=== PATIENT | female | born 1965 | race Caucasian/White ===

== ENCOUNTER 2016-10-12 03:23 | Emergency (ER) ==
[2016-10-12 03:45] VITALS: BP 135/85; TEMP 101; BMI 28.8
--- NOTE | 2016-10-12 04:38 | CT ---
EXAM: CT of the chest without contrast. HISTORY: Cough. PROCEDURE: Contiguous axial CT images of the chest without contrast with coronal and sagittal refor mats. FINDINGS: The heart, mediastinum and thoracic aorta are normal in appearance. There is minimal infil trate in the posterior right lower lobe consistent with pneumonia. The adrenal glands and visualized portion of the liver are normal in appearance. Impression: Minimal infiltrate in the posterior right lower lobe consistent with pneumonia.
[2016-10-12 04:44] LABS: ABG BASE EXCESS -1 (-2.0-2.0); ABG HCO3 23.5 (22.0-26.0); ABG PCO2 36.6 mmHg (35-45); ABG PH 7.415 (7.35-7.45); ABG TCO2 25 (22.0-28.0)
[2016-10-12 04:45] LABS: BASOPHILS % (AUTO) 0.3 % (0.0-3.0); EOSINOPHILS # (AUTO) 0.2 K/ul (0.0-0.7); EOSINOPHILS % (AUTO) 2.6 % (0.0-7.0); HEMATOCRIT 39.3 % (37.0-47.0); HEMOGLOBIN 12.9 g/dl (12.0-16.0); IMMATURE GRANULOCYTE % (AUTO) 0.6 % (0.0-5.0); LYMPHOCYTES # (AUTO) 1.6 K/uL (0.60-3.4); LYMPHOCYTES % (AUTO) 24.2 (10.0-50.0); MEAN CORPUSCULAR HEMOGLOBIN 29.3 pg (27.0-31.0); MEAN CORPUSCULAR HGB CONC 32.8 (31.8-35.4); MEAN CORPUSCULAR VOLUME 89.1 fl (81.0-99.0); MONOCYTES % (AUTO) 14.8 (0-10); NEUTROPHILS # (AUTO) 3.8 K/ul (2.0-6.9); NEUTROPHILS % (AUTO) 57.5; PLATELET COUNT 224 10^3/uL (140-440); RED BLOOD COUNT 4.41 10^6/ul (4.20-5.40); WHITE BLOOD COUNT 6.56 K/ul (4.6-10.2)
[2016-10-12] MEDS: DUONEB NEB STA (04:45)
[2016-10-12] MEDS: XOPENEX 1.25 MG NEB STA (04:55)
[2016-10-12] MEDS: DECADRON 4 MG/ML SDV IM STA (04:57)
[2016-10-12 05:05] LABS: ALBUMIN 3.6 g/dL (3.4-5.0); ANION GAP 14.8; BILIRUBIN,TOTAL 0.28 mg/dL (0.00-1.20); BUN/CREATININE RATIO 11.11; CALCIUM 9.3 mg/dL (8.2-10.2); CREATININE 0.81 mg/dL (0.60-1.30); POTASSIUM 3.8 mmol/L (3.5-5.10); TOTAL PROTEIN 7.2 g/dL (6.4-8.2)
[2016-10-12] MEDS: LEVAQUIN 750 MG in PREMIX 150 ML D5W 1 BAG IV STA (06:24)
[2016-10-12] MEDS: LEVAQUIN 150 ML IV ONE (06:24)
--- NOTE | 2016-10-12 06:41 | ED.PDOC ---
General ED Provider: Dr. LAURA BAHENA-ER Chief Complaint: Shortness of Air Stated Complaint: im coughing and running a fever Time Seen by Physician: 03:30 Mode of Arrival: Walk-In Information Source: Patient, Family Exam Limitations: No limitations Primary Care Provider: SYDNI GARCÍA Nursing and Triage Documentation Reviewed and Agree: Yes Respiratory Complaint Exam - Respiratory Complaint/Exam Onset/Duration: 24 hrs Symptoms Are: Still present Timing: Constant Initial Severity: Mild Current Severity: Mild Location: Chest Character: Reports: Productive cough Aggravating: Reports: URI Alleviating: Reports: None Associated Signs and Symptoms: Reports: Fever, Chills, URI. Denies: Rapid breathing, Dyspnea, Chest pain, Pleuritic chest pain, Wheezing, Hemoptysis, Dizziness, Calf pain, Calf swelling, Edema, Nasal congestion, Hoarseness, Sinus discomfort, Vomiting, Sore throat, Weight loss, Decreased oral intake, Increased thirst, Increased appetite, Increased urination Related History: Reports: Similar episode History of Healthcare-Acquired Pneumonia: No Related Surgical History: Reports: None Status Asthmaticus Risk Factors: Reports: None Home Oxygen Use: No Recent Stress Test: No Recent Echo/LV Function: No Current Antibiotic Use: No Current Asthma Medication Use: No Respiratory Distress: None Inadequate Respiratory Effort: No Dysphagia Present: No Stridor Present: No JVD Present: No Accessory Muscle Use: No Retractions: Not Present Diminished Breath Sounds: No Sinus Tenderness: None Grunting Respirations: No Kussmaul Respirations: No Differential Diagnoses: Pneumonia Non-Traumatic Chest Pain Syncope: EKG Performed Review of Systems - Review Of Systems Constitutional: Reports: Chills, Fever, Weakness Eyes: Reports: No symptoms Ears, Nose, Mouth, Throat: Reports: No symptoms Respiratory: Reports: Cough Cardiac: Reports: No symptoms GI: Reports: No symptoms : Reports: No symptoms Musculoskeletal: Reports: No symptoms Skin: Reports: No symptoms Neurological: Reports: No symptoms Endocrine: Reports: No symptoms Hematologic/Lymphatic: Reports: No symptoms All Other Systems: Reviewed and Negative Past Medical History - Past Medical History Previously Healthy: Yes Endocrine: Reports: None Cardiovascular: Reports: None Respiratory: Reports: None Hematological: Reports: None Gastrointestinal: Reports: None Genitourinary: Reports: None Neuro/Psych: Reports: None Musculoskeletal: Reports: None Cancer: Reports: None Last Menstrual Period: 2003 - Surgical History General Surgical History: Reports: Other, Unknown - Family History Family History: Reports: Unknown - Social History Smoking Status: Never smoker Hx Substance Use: No Alcohol Screening: Occasionally Lives: With family - Immunizations Tetanus Shot up to Date: Yes Physical Exam - Physical Exam Appearance: Well-appearing Eyes: ALEX, EOMI, Conjunctiva clear ENT: Ears normal, Nose normal, Oropharynx normal Neck: Supple Respiratory: Crackles, Rhonchi Cardiovascular: RRR GI/: Soft, Nontender, No masses, Bowel sounds normal, No Organomegaly Musculoskeletal: Normal strength Skin: Warm Neurological: Sensation intact Psychiatric: Affect appropriate Interpretation - Radiology Interpretation Radiology Interpretation By: Radiologist Radiology Results: Negative Exam Interpreted: CT Scan Re-Evaluation - Re-Evaluation Time of Re-Evaluation: 06:41 Status: Improved Vital Signs Stable: Yes Pain Level: 0 Appearance: NAD Lungs: Clear Skin: Warm and Dry Neuro: Alert and Oriented X3 CV: RRR Critical Care Note - Critical Care Note Total Time (mins): 0 Course - Course Hematology/Chemistry: 10/12/16 04:40 10/12/16 04:40 Orders, Labs, Meds: Lab Review 10/12/16 04:40 WBC 6.56 RBC 4.41 Hgb 12.9 Hct 39.3 MCV 89.1 MCH 29.3 MCHC 32.8 RDW Coeff of Cherrie 13.2 Plt Count 224 Immature Gran % (Auto) 0.6 Neut % (Auto) 57.5 Lymph % (Auto) 24.2 Louisa % (Auto) 14.8 H Eos % (Auto) 2.6 Baso % (Auto) 0.3 Immature Gran # (Auto) 0.0 Neut # 3.8 Lymph # 1.6 Louisa # 1.0 Eos # 0.2 Baso # 0.0 D-Dimer (Manual) 583.83 Puncture Site Rb O2 Saturation 96.0 ABG pH 7.415 ABG pCO2 36.6 ABG pO2 78.0 L ABG HCO3 23.5 ABG Total CO2 25 ABG Base Excess -1 Henry Test + FiO2 % 21.0 Sodium 137 Potassium 3.8 Chloride 102 Carbon Dioxide 24 Anion Gap 14.8 BUN 9 Creatinine 0.81 Estimated GFR (MDRD) 74.00 BUN/Creatinine Ratio 11.11 Glucose 108 Lactic Acid 18.6 Calcium 9.3 Total Bilirubin 0.28 AST 24 ALT 31 Alkaline Phosphatase 75 B-Natriuretic Peptide < 10 Total Protein 7.2 Albumin 3.6 Globulin 3.6 Albumin/Globulin Ratio 1.00 Procalcitonin 0.06 Orders Category Date Time Status ABG DRAW REQUEST Stat CARDIO 10/12/16 04:02 Completed EKG-(ED ONLY) Stat CARDIO 10/12/16 04:08 Completed NEBULIZER TREATMENT Stat CARDIO 10/12/16 04:04 Completed IV [ED IV/MEDIPORT/POWERPORT] .ONCE EMERGENCY 10/12/16 04:38 Active ABG Stat LAB 10/12/16 04:40 Completed B-TYPE NATRIURETIC PEPTIDE Stat LAB 10/12/16 04:40 Completed BLOOD CULTURE Stat LAB 10/12/16 04:40 Received CBC W/ AUTO DIFF Stat LAB 10/12/16 04:40 Completed COMPREHENSIVE METABOLIC PANEL Stat LAB 10/12/16 04:40 Completed D-DIMER Stat LAB 10/12/16 04:40 Completed LACTIC ACID Stat LAB 10/12/16 04:40 Completed PROCALCITONIN Stat LAB 10/12/16 04:40 Completed RAPID FLU A/B Stat LAB 10/12/16 04:02 Uncollected STREP SCREEN Stat LAB 10/12/16 04:02 Uncollected 0.9 % Sodium Chloride [Saline Flush] MEDS 10/12/16 04:38 Ordered 1 syr IVF PRN PRN Dexamethasone 4 mg/ml Inj [Decadron 4 mg/ml Sdv] MEDS 10/12/16 04:04 Discontinued 8 mg IM ONCE STA Ipratropium/Albuterol Neb [Duoneb] MEDS 10/12/16 04:04 Discontinued 1 vial NEB ONCE STA Levalbuterol HCl [Xopenex 1.25 mg] MEDS 10/12/16 04:04 Discontinued 1 vial NEB ONCE STA Levofloxacin/D5w [Levaquin] 150 ml MEDS 10/12/16 04:59 Discontinued IV .STK-MED Levofloxacin/D5w [Levaquin] 750 mg MEDS 10/12/16 04:38 Discontinued Premix 150 ml D5w [address] CHEST W/O CONTRAST Stat RADS 10/12/16 04:03 Completed Medications Generic Name Dose Route Start Last Admin Trade Name Freq PRN Reason Stop Dose Admin Sodium Chloride 1 syr 10/12/16 04:38 Saline Flush IVF PRN PRN To flush IV Discontinued Medications Generic Name Dose Route Start Last Admin Trade Name Holger PRN Reason Stop Dose Admin Albuterol/Ipratropium 1 vial 10/12/16 04:04 10/12/16 04:45 Duoneb NEB 10/12/16 04:05 1 vial ONCE STA Administration Dexamethasone Sodium Phosphate 8 mg 10/12/16 04:04 10/12/16 04:57 Decadron 4 Mg/Ml Sdv IM 10/12/16 04:05 8 mg ONCE STA Administration Levofloxacin/Dextrose 750 mg/ 150 mls @ 100 mls/hr 10/12/16 04:38 10/12/16 06 :24 Dextrose IV 10/12/16 06:07 100 mls/hr ONCE STA Administration Levalbuterol HCl 1 vial 10/12/16 04:04 10/12/16 04:55 Xopenex 1.25 Mg [facility] 10/12/16 04:05 1 vial ONCE STA Administration Vital Signs: Temp Pulse Resp BP Pulse Ox 10/12/16 03:24 101 F H 106 H 20 135/85 97 Departure - Departure Time of Disposition: 06:42 Disposition: HOME SELF-CARE Discharge Problem: Pneumonia Qualifiers: Pneumonia type: due to unspecified organism Laterality: right Lung location: lower lobe of lung Qualifier Code: (J18.1) Lobar pneumonia, unspecified organism Instructions: Community Acquired Pneumonia (ED) Condition: Good Pt referred to PMD for follow-up: Yes Additional Instructions: levaquin 500mg #9--medrol dose pack--albuterol inhaler 2 puffs qid--drink plenty of fluids--f/u with dr garcía next week Allergies/Adverse Reactions: Allergies cephalexin [From Keflex] Adverse Reaction (Severe, Verified 10/12/16 03:36) Anaphylaxis Home Medications: Ambulatory Orders Ferrous Sulfate 1 tab PO DAILY 10/12/16 Levothyroxine Sodium [Synthroid] 150 mcg PO DAILY 10/12/16 Multivitamin 1 cap PO DAILY 10/12/16 Venlafaxine HCl [Effexor Xr] 150 mg PO DAILY 10/12/16 Disposition Discussed With: Patient
[2016-10-12 07:04] LABS: FLU INTERNAL QC INTERNAL QC VALID; RAPID FLU A NEGATIVE (NEGATIVE); RAPID FLU B NEGATIVE (NEGATIVE)
== END 2016-10-12 07:30 | disposition home or self-care (01) ==
LOC: ED 03:23
DX: J18.1 Lobar pneumonia, unspecified organism (principal); R06.02 Shortness of breath
CPT/HCPCS: 36415; 80053; 82803; 83605; 83880; 84145; 85025; 85379; 87040; 87651; 87804; 87880; 93005; 93010; 94640; 96365; 96372; 99284

== ENCOUNTER 2017-12-26 18:09 | Emergency (ER) | payer OTHER ==
[2017-12-26 18:23] VITALS: BP 120/80; TEMP 97.9; BMI 29.9
--- NOTE | 2017-12-26 18:29 | ED.PDOC ---
General ED Provider: Dr. SUSAN GALLEGOS Chief Complaint: Syncope Stated Complaint: syncope Time Seen by Physician: 18:27 (was in a blood drive after donation passed out fell head injury) Mode of Arrival: Walk-In Information Source: Patient Exam Limitations: No limitations (with norman RN PRESENT DENIED HEAD OR NECK PAIN ALSO DENIED BACK PAIN ) Primary Care Provider: SYDNI BASHIR Nursing and Triage Documentation Reviewed and Agree: Yes Does patient meet sepsis criteria?: No (NO CHEST PAIN OR NEUROLOGICAL SYMP PRIOR TO SYNCOPE) If yes, has appropriate treatment been initiated?: No System Inflammatory Response Syndrome: Not Applicable Sepsis Protocol: For patient's 13 years and over: Temp is 96.8 and below OR 101 and greater Pulse >90 BPM Resp >20/minute Acutely Altered Mental Status Are patient's symptoms suggestive of a new infection, such as: -Pneumonia -Skin, Soft Tissue -Endocarditis -UTI -Bone, Joint Infection -Implantable Device -Acute Abdominal Infection -Wound Infection -Meningitis -Blood Stream Catheter Infection -Unknown Neurological Complaint Exam - Syncope/Near Syncope Complaint/Exam Onset/Duration: TODAY JUST P.T.A. AT A BLOOD DRIVE Symptoms Are: Still present Episodes Lasting: Seconds Number of Episodes: 1 Frequency of Episodes: 1 Episodes Witnessed: Yes Loss of Consciousness: No Associated Head Trauma: Yes Activity at Onset: At rest Aggravating: Position change Alleviating: Reports: Spontaneous resolution Associated Signs and Symptoms: Denies: Pain, Decreased oral intake, Vomiting, Diarrhea, GI blood loss, Short of air, Chest pain, Palpitations, Diaphoresis, Lightheadedness, Dizziness, Weakness, AMS, Numbness, Headache, Seizure, Remote head trauma, Recent head trauma Cardiac Risk Factors: Reports: None GI Bleed Risk Factors: Reports: None Dysrhythmia Risk Factors: Reports: None Related Surgical History: Reports: None JVD Present: No Carotid Bruit Present: No Rectal Heme Positive: No Glascow Coma Scale (see protocol): 15 Nystagmus Present: No Gag Reflex Present: Yes Meningeal Signs Positive: No Focal Weakness: Present: None Focal Sensory Loss: Present: None Gait: Normal Differential Diagnoses: Vasovagal Episode Review of Systems - Review Of Systems Constitutional: Reports: No symptoms Eyes: Reports: No symptoms Ears, Nose, Mouth, Throat: Reports: No symptoms Respiratory: Reports: No symptoms Cardiac: Reports: Syncope GI: Reports: No symptoms : Reports: No symptoms Musculoskeletal: Reports: No symptoms Skin: Reports: No symptoms Neurological: Reports: No symptoms Endocrine: Reports: No symptoms Hematologic/Lymphatic: Reports: No symptoms All Other Systems: Reviewed and Negative Past Medical History - Past Medical History Previously Healthy: Yes Endocrine: Reports: None Cardiovascular: Reports: None Respiratory: Reports: None Hematological: Reports: None Gastrointestinal: Reports: None Genitourinary: Reports: None Neuro/Psych: Reports: None Musculoskeletal: Reports: None Cancer: Reports: None Last Menstrual Period: PT HAS HAD A HYSTERECTOMY - Surgical History General Surgical History: Reports: Other, Unknown - Family History Family History: Reports: Unknown - Social History Smoking Status: Never smoker Hx Substance Use: No Alcohol Screening: Occasionally - Immunizations Tetanus Shot up to Date: Yes Physical Exam - Physical Exam Appearance: Well-appearing, No pain distress, Well-nourished Eyes: ALEX, EOMI, Conjunctiva clear ENT: Ears normal, Nose normal, Oropharynx normal Respiratory: Airway patent, Breath sounds clear, Breath sounds equal, Respirations nonlabored Cardiovascular: RRR, Pulses normal, No rub, No murmur GI/: Soft, Nontender, No masses, Bowel sounds normal, No Organomegaly Musculoskeletal: Normal strength, ROM intact, No edema, No calf tenderness Skin: Warm, Dry, Normal color Neurological: Sensation intact, Motor intact, Reflexes intact, Cranial nerves intact, Alert, Oriented Psychiatric: Affect appropriate, Mood appropriate Critical Care Note - Critical Care Note Total Time (mins): 0 Course - Course Vital Signs: Temp Pulse Resp BP Pulse Ox 12/26/17 18:10 97.9 F 98 H 18 120/80 99 Departure - Departure Time of Disposition: 19:00 Disposition: HOME SELF-CARE Discharge Problem: Syncope Instructions: Syncope (ED) Condition: Good Pt referred to PMD for follow-up: Yes IPMP verified?: No Additional Instructions: Please call your Family Physician as soon as possible to schedule a follow-up appointment. Allergies/Adverse Reactions: Allergies cephalexin [From Keflex] Adverse Reaction (Severe, Verified 12/26/17 18:20) Anaphylaxis morphine Adverse Reaction (Verified 12/26/17 18:20) Anaphylaxis Home Medications: Ambulatory Orders Levothyroxine Sodium [Synthroid] 150 mcg PO DAILY 10/12/16 Multivitamin 1 cap PO DAILY 10/12/16 Venlafaxine HCl [Effexor Xr] 150 mg PO DAILY 10/12/16 Alprazolam [Xanax] 0.25 mg PO DAILY PRN 12/26/17 Disposition Discussed With: Patient
== END 2017-12-26 19:00 | disposition home or self-care (01) ==
LOC: ED 18:09
DX: R55 Syncope and collapse (principal)
CPT/HCPCS: 99281

== ENCOUNTER 2018-03-17 08:06 | Outpatient (CLI) ==
--- NOTE | 2018-03-17 11:06 | MRI ---
EXAM: MRI cervical spine without IV contrast. DATE: 02/18/2018. HISTORY: Neck pain. TECHNIQUE: Sagittal and axial T1W and T2W sequences of the cervical spine along with sagittal IR and coronal T2W sequences were obtained using 1.2 Judie magnet. No IV contrast. COMPARISON: CT chest 12 Oct 2016. FINDINGS: There is no cervical scoliosis. No acute c-spine fracture, subluxation, osseous malignanc y, or jumped facet is evident. Cervical vertebra are normal in height. C5 is shorter in AP dimensio n compared to the remaining cervical vertebra. Bone marrow signal is normal. Mild disc space narrow ing is detected at C4-5 and C5-6. Cervical and upper thoracic spinal cord reveals no syrinx, cord ed bassam, myelomalacia, or neoplasm. Visible brainstem is normal. Visible cerebellum and cerebrum reveal no acute infarct, hemorrhage, or neoplasm. A few right and small number of left mastoid air cells demonstrate T2W bright signal sugg esting mastoid effusion vs mastoiditis. No thyroid, submandibular, or parotid gland neoplasm is evid ent. Trachea, larynx, and epiglottis are normal. No suspicious neck mass, cervical lymphadenopathy, apical lung mass, pneumonia, or pleural effusion is revealed. Segmental analysis: C2-3: Normal. C3-4: Minor posterior disc bulge (1.2 mm AP) does not contact the cord. Canal is 9.4 mm AP. Minor left foraminal narrowing is due to uncinate hypertrophy. C4-5: Minor posterior disc bulge (1.3 mm AP) does not contact the cord. Canal is 9.5 mm AP. Each f oramen is patent. C5-6: Minimal posterior disc bulge (1.2 mm AP) does not contact the cord. Canal is 10.2 mm AP. Eac h foramen is patent. C6-7: Minimal right paracentral disc bulge (1.2 mm AP) does not cause cord compression. Canal is 9. 8 mm AP. Each foramen is patent. C7-T1: Small posterior disc bulge (1.5 mm AP) with midline annular fissure is not cause cord dorys liudmila. Canal is 9.4 mm AP. Each foramen is patent. T1-2: Normal. IMPRESSIONS: 1. 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 2. Minor left foraminal narrowing at C3-4. 3. Minor right and mild left mastoid disease.
== END 2018-03-17 08:07 | disposition home or self-care (01) ==
LOC: RAD 08:06
PROVIDERS: ATTEND Family Medicine
DX: M54.2 Cervicalgia (principal); M79.603 Pain in arm, unspecified